=== PATIENT | male | born 1990 | race Caucasian/White ===

== ENCOUNTER → 2018-07-13 | Outpatient (CLI) | payer SELFPAY | LOC: BMCIMAGING 19:26 | PROVIDERS: ATTEND Family Medicine | DX: R05 Cough (principal) ==

== ENCOUNTER 2018-07-27 03:22 | Emergency (ER) | payer OTHER ==
[2018-07-27] MEDS ORDERED: NS 1,000 ML IV ONE ×3 (03:31→06:38)
--- NOTE | 2018-07-27 03:32 | EDPHY ---
H & P Stated Complaint: n/v/d, generalized rash, tx for pnuemonia 2wks ago Source: Patient - Personal History Current Tetanus Diphtheria and Acellular Pertussis (TDAP): No - Medical/Surgical History Hx Asthma: No Hx Chronic Respiratory Disease: No Hx Diabetes: No Hx Cardiac Disease: No Hx Renal Disease: No Hx Cirrhosis: No Hx Alcoholism: No Hx HIV/AIDS: No Hx Splenectomy or Spleen Trauma: No Other PMH: denies - Social History Smoking Status: Never smoked Time Seen by Provider: 07/27/18 03:32 HPI/ROS: HPI CHIEF COMPLAINT: Nausea vomiting, diarrhea, rash HISTORY OF PRESENT ILLNESS: Patient is a very pleasant 28-year-old male, denies any significant medical history use to have allergies as a child, however "grew out of all them" patient presents emergency room with diffuse urticaria, nausea vomiting and diarrhea. 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 He began having nausea vomiting and diarrhea. He states this persisted he went home and woke up around 2:00 a.m. To have vomiting again and noticed that he had diffuse rash that itches. He denies any trouble breathing. He arrives to the emergency room is noted to be tachycardic in the 130s. He has diffuse urticaria. No stridor no wheezing. He reports multiple episodes of vomiting and diarrhea. He reports he does not believe that he ingested anything new tonight he had typical cheese pizza. Of note he does report that he 2 weeks ago he was diagnosed with pneumonia placed on a Z-Rhys. Completed this over week ago. Denies any new ingestions or medications. Past Medical History: Denies medical history Past Surgical History: Denies surgical Social History: Denies drugs alcohol tobacco. Family History: Noncontributory ROS REVIEW OF SYSTEMS: 10 Systems were reviewed and negative with the exception of the elements mentioned in the history of present illness. Exam Constitutional triage nursing summary reviewed, vital signs reviewed, awake/ alert. Vital signs noted be tachycardic at 130. Eyes normal conjunctivae and sclera, EOMI, PERRLA. HENT normal inspection, atraumatic, moist mucus membranes, no epistaxis, neck supple/ no meningismus, no raccoon eyes. Respiratory clear to auscultation bilaterally, normal breath sounds, no respiratory distress, no wheezing. Cardiovascular tachycardia, regular rhythm, no murmur, no edema, distal pulses normal. Gastrointestinal soft, non-tender, no rebound, no guarding, normal bowel sounds, no distension, no pulsatile mass. Genitourinary no CVA tenderness. Musculoskeletal no midline vertebral tenderness, full range of motion, no calf swelling, no tenderness of extremities, no meningismus, good pulses, neurovascularly intact. Skin diffuse urticaria. Neurologic awake, alert and oriented x 3, AAOx3, moves all 4 extremities equally, motor intact, sensory intact, CN II-XII intact, normal cerebellar, normal vision, normal speech. Psychiatric normal mood/affect. Heme/Lymph/Immune no lymphadenopathy. Differential Diagnosis: Includes but is not limited to in a particular order acute anaphylaxis, allergic reaction, dehydration, electrolyte disturbance. Medical Decision Making: Plan for this patient given that he is tachycardic, diffuse urticaria plan will be for IV establishment IV fluid bolus, IV Benadryl IV Solu-Medrol IV Pepcid IM epinephrine. Basic labs. Re-evaluation: 0630AM: Patient re-evaluated this time his urticaria has resolved. He is feeling better. It is noted he still slightly tachycardic in the 1 teens. He will receive a 3rd L of fluid. He arrived to to the emergency room with urticaria diffusely, nausea vomiting and diarrhea. Appeared to have significant allergic reaction. He is doing much better after IV Benadryl, IV Pepcid, IV fluids and IM epinephrine. Patient continues do well however, however slightly tachycardic still, and is getting you need further observation. Plan will be for discharge home with continues to do well. Signed over at 7:[address] Paige. Prescription provided for Benadryl, prednisone, Pepcid, and epi pens. Do recommend he follows up with a calculus tutor. Return precautions discussed with him he understands return emergency room if the recurrence of allergic reaction if severe administer epinephrine and call 911 he understands this. (Cristo Rushing) Constitutional: Initial Vital Signs Temperature (C) 37.3 C 07/27/18 03:24 Heart Rate 136 H 07/27/18 03:24 Respiratory Rate 18 07/27/18 03:24 Blood Pressure 146/82 H 07/27/18 03:24 O2 Sat (%) 95 07/27/18 03:24 O2 Delivery Mode Room Air Allergies/Adverse Reactions: No Known Allergies Allergy (Unverified 07/27/18 03:28) Home Medications: Medication Instructions Recorded EPINEPHrine [Epipen 0.3 MG] 0.3 mg IM ONCE #2 syr 07/27/18 Famotidine [Pepcid 20 MG (*)] 20 mg PO BID #6 tab 07/27/18 diphenhydrAMINE [Benadryl 25 MG 25 mg PO BID #6 tab 07/27/18 (*)] predniSONE 60 mg PO DAILY #9 tab 07/27/18 Medical Decision Making ED Course/Re-evaluation: Re-evaluation by me at 8:45 a.m.. Patient is stable and without complaints. Exam shows no rash. No longer nauseated and not having vomiting. No trouble speaking or swallowing or breathing. Patient and I discussed treatment plan including criteria for return importance of follow-up and further evaluation. He expresses understanding and agrees ( Saroj Paige) - Data Points Laboratory Results: Laboratory Results 07/27/18 04:00 07/27/18 04:00 07/27/18 07/27/18 04:00 04:00 WBC 16.60 10^3/uL H 10^3/uL (3.80-9.50) RBC 6.03 10^6/uL 10^6/uL (4.40-6.38) Hgb 17.6 g/dL H g/dL (13.7-17.5) Hct 51.1 % H % (40.0-51.0) MCV 84.7 fL fL (81.5-99.8) MCH 29.2 pg pg (27.9-34.1) MCHC 34.4 g/dL g/dL (32.4-36.7) RDW 12.9 % % (11.5-15.2) Plt Count 289 10^3/uL 10^3/uL (150-400) MPV 10.6 fL fL (8.7-11.7) Neut % (Auto) 91.3 % H % (39.3-74.2) Lymph % (Auto) 3.0 % L % (15.0-45.0) [place] % (Auto) 4.8 % % (4.5-13.0) Eos % (Auto) 0.3 % L % (0.6-7.6) Baso % (Auto) 0.2 % L % (0.3-1.7) Nucleat RBC Rel Count 0.0 % % (0.0-0.2) Absolute Neuts (auto) 15.16 10^3/uL H 10^3/uL (1.70-6.50) Absolute Lymphs (auto) 0.50 10^3/uL L 10^3/uL (1.00-3.00) Absolute Monos (auto) 0.80 10^3/uL 10^3/uL (0.30-0.80) Absolute Eos (auto) 0.05 10^3/uL 10^3/uL (0.03-0.40) Absolute Basos (auto) 0.03 10^3/uL 10^3/uL (0.02-0.10) Absolute Nucleated RBC 0.00 10^3/uL 10^3/uL (0-0.01) Immature Gran % 0.4 % % (0.0-1.1) Immature Gran # 0.07 10^3/uL 10^3/uL (0.00-0.10) RBC/WBC/PLT Morphology TNP Platelet Estimate TNP Sodium 141 mEq/L mEq/L (135-145) Potassium 4.2 mEq/L mEq/L (3.5-5.2) Chloride 106 mEq/L mEq/L (97-110) Carbon Dioxide 22 mEq/l mEq/l (22-31) Anion Gap 13 mEq/L mEq/L (6-14) BUN 18 mg/dL mg/dL (7-23) Creatinine 0.8 mg/dL mg/dL (0.7-1.3) Estimated GFR > 60 Glucose 122 mg/dL H mg/dL (70-100) Calcium 9.5 mg/dL mg/dL (8.5-10.4) Medications Given: Discontinued Medications Diphenhydramine HCl (Benadryl Injection) 50 mg IVP EDNOW ONE Stop: 07/27/18 03:43 Last Admin: 07/27/18 03:57 Dose: 50 mg Epinephrine HCl (Epinephrine) 0.3 mg IM EDNOW ONE Stop: 07/27/18 03:43 Last Admin: 07/27/18 03:54 Dose: 0.3 mg Famotidine (Pepcid) 20 mg IVP EDNOW ONE Stop: 07/27/18 03:43 Last Admin: 07/27/18 04:02 Dose: 20 mg Sodium Chloride (Ns) 1,000 mls @ 0 mls/hr IV EDNOW ONE; Wide Open PRN Reason: Protocol Stop: 07/27/18 03:32 Last Admin: 07/27/18 03:56 Dose: 1,000 mls Sodium Chloride (Ns) 1,000 mls @ 0 mls/hr IV EDNOW ONE; Wide Open PRN Reason: Protocol Stop: 07/27/18 03:32 Last Admin: 07/27/18 03:57 Dose: 1,000 mls Sodium Chloride (Ns) 1,000 mls @ 0 mls/hr IV ONCE ONE PRN Reason: Wide Open Stop: 07/27/18 06:39 Last Admin: 07/27/18 06:40 Dose: 1,000 mls Methylprednisolone Sodium Succinate (Solu-Medrol) 125 mg IVP EDNOW ONE Stop: 07/27/18 03:43 Last Admin: 07/27/18 03:59 Dose: 125 mg Ondansetron HCl (Zofran) 4 mg IVP EDNOW ONE Stop: 07/27/18 04:01 Last Admin: 07/27/18 04:04 Dose: 4 mg Departure - Departure Disposition: Home, Routine, Self-Care Clinical Impression: Allergic reaction Condition: Good Instructions: Urticaria (ED), Food Allergy (ED), Anaphylaxis (ED), Allergies ( ED) Additional Instructions: 1. Please return to the emergency room if you have worsening symptoms includes a recurrence of her allergic reaction. 2. Prednisone for the next 3 days, Benadryl for the next 3 days. 3. Please follow up with an calculus tutor. Referrals: NONE *PRIMARY CARE P,. [Primary Care Provider] - As per Instructions [facility],. [Clinic] - As per Instructions Prescriptions: diphenhydrAMINE [Benadryl 25 MG (*)] 25 mg PO BID #6 tab EPINEPHrine [Epipen 0.3 MG] 0.3 mg IM ONCE #2 syr Famotidine [Pepcid 20 MG (*)] 20 mg PO BID #6 tab predniSONE 60 mg PO DAILY #9 tab
[2018-07-27] MEDS ORDERED: ONDANSETRON 4 MG/2 ML VIAL ONE (03:42)
[2018-07-27] MEDS ORDERED: FAMOTIDINE 20 MG/2 ML SDV IVP ONE (03:42)
[2018-07-27] MEDS ORDERED: methylPREDNISolone SOD SUCC 125 MG/2 ML VIAL IVP ONE (03:42)
[2018-07-27] MEDS ORDERED: EPINEPHrine 1 MG/ML INJ IM ONE (03:42)
[2018-07-27] MEDS ORDERED: ONDANSETRON 4 MG/2 ML VIAL IVP ONE (04:00)
[2018-07-27 04:16] LABS: PLATELET COUNT 289 10^3/uL (150-400)
[2018-07-27 08:57] VITALS: BP 134/79
== END 2018-07-27 09:07 | disposition home or self-care (01) ==
DX: T78.40XA Allergy, unspecified, initial encounter (principal); E86.9 Volume depletion, unspecified
CPT/HCPCS: 96374; J0171; J1200; J2405; J2930